=== PATIENT | male | born 1955 | race Caucasian/White ===

== ENCOUNTER 2022-04-01 08:27 | Inpatient (IN) | payer OTHER, BC ==
[2022-04-01 09:17] VITALS: BMI 34.2
[2022-04-01] MEDS ORDERED: BISMUTH SUBSALICYLATE 262 MG/15 ML BTL PO PRN (10:23)
[2022-04-01] MEDS ORDERED: IBUPROFEN 400 MG TABLET (FP) PO PRN (10:23)
[2022-04-01] MEDS ORDERED: ACETAMINOPHEN 325 MG TABLET (FP) PO PRN ×2 (10:23)
[2022-04-01] MEDS ORDERED: MAGNESIUM HYDROX 2400MG/30ML ORAL SUSPENSION 30 ML CUP PO PRN (10:23)
[2022-04-01] MEDS ORDERED: MAGNESIUM CITRATE 300 ML BOTTLE PO PRN (10:23)
[2022-04-01] MEDS ORDERED: DICYCLOMINE HCL 10 MG CAPSULE PO PRN (10:23)
[2022-04-01] MEDS ORDERED: IBUPROFEN 600 MG TABLET (FP) PO PRN (10:23)
[2022-04-01] MEDS ORDERED: MAG HYDROX/AL HYDROX/SIMETH 30 ML UNIT-DOSE CUP PO PRN (10:23)
[2022-04-01] MEDS ORDERED: ONDANSETRON *ODT* 4 MG TABLET SL PRN (10:23)
[2022-04-01] MEDS ORDERED: diazePAM 5 MG TABLET PO PRN (10:23)
[2022-04-01] MEDS ORDERED: METHOCARBAMOL 500 MG TABLET PO PRN (10:23)
[2022-04-01] MEDS ORDERED: BENZOCAINE/MENTHOL (CHLORASEPTIC ) LOZENGE MM PRN (10:23)
[2022-04-01] MEDS ORDERED: LOPERAMIDE HCL 2 MG CAPSULE PO PRN (10:23)
[2022-04-01] MEDS: diazePAM 5 MG TABLET PO SCH ×3 (11:38→22:22)
[2022-04-01] MEDS: PRENATAL VITAMINS W/ FOLIC ACID TABLET (FP) PO SCH (11:39)
[2022-04-01 15:48] LABS: HEMATOCRIT 42.2 % (35.4-49); HEMOGLOBIN 14.3 GM/dL (11.7-16.9); MCHC 33.9 g/dl (32.0-35.9); MEAN CELL VOLUME 94.3 fl (80-96); MEAN PLT VOLUME 8.9 fl (7.5-11.1); PLATELET COUNT 309 10^3/uL (134-434); RBC 4.47 M/mm3 (4.00-5.60); RDW 12.9 % (11.9-15.9); WHITE BLOOD COUNT 14.3 K/mm3 (4.0-10.0)
[2022-04-01 16:10] LABS: ALBUMIN 4.3 g/dl (3.4-5.0); BLOOD UREA NITROGEN 17.9 mg/dL (7-18); CALCIUM 9.6 mg/dL (8.5-10.1)
[2022-04-01 16:13] LABS: CREATININE 0.9 mg/dL (0.55-1.3)
[2022-04-01 16:15] LABS: BILIRUBIN,TOTAL 1.1 mg/dL (0.2-1); TOT PROT 7.6 g/dl (6.4-8.2)
[2022-04-01] MEDS: metFORMIN HCL 500 MG TABLET (FP) PO SCH (18:18)
[2022-04-01] MEDS: THIAMINE HCL 100 MG TABLET (FP) PO SCH (22:21)
[2022-04-01] MEDS: ATORVASTATIN CA 10 MG TABLET (FP) PO SCH (22:21)
[2022-04-01] MEDS: MELATONIN 5 MG TABLETS PO SCH (22:21)
[2022-04-01] MEDS: hydrOXYzine PAMOATE 25 MG CAPSULE (FP) PO PRN (22:23)
[2022-04-02] MEDS: diazePAM 5 MG TABLET PO SCH ×4 (05:27→22:31)
[2022-04-02] MEDS: metFORMIN HCL 500 MG TABLET (FP) PO SCH ×2 (06:27→17:58)
[2022-04-02] MEDS ORDERED: PATIENT'S OWN MEDICATION (NON-FORMULARY) (Losartan/Hydrochlorothiazide [Losartan-Hctz 100- PO SCH (10:00)
[2022-04-02] MEDS: HYDROCHLOROTHIAZIDE 12.5 MG CAPSULE (FP) PO SCH (10:38)
[2022-04-02] MEDS: PRENATAL VITAMINS W/ FOLIC ACID TABLET (FP) PO SCH (10:38)
[2022-04-02] MEDS: ALLOPURINOL 100 MG TABLET (FP) PO SCH (10:38)
[2022-04-02] MEDS: hydrOXYzine PAMOATE 25 MG CAPSULE (FP) PO PRN (10:38)
[2022-04-02] MEDS: LOSARTAN POTASSIUM 50 MG TABLET PO SCH (10:39)
[2022-04-02] MEDS: amLODIPine BESYLATE 5 MG TABLET (FP) PO SCH (10:39)
[2022-04-02] MEDS: FLUTICASONE PROP 0.05% 16 GM NASAL SPRAY NS SCH ×2 (10:40→22:34)
[2022-04-02] MEDS: THIAMINE HCL 100 MG TABLET (FP) PO SCH (22:31)
[2022-04-02] MEDS: ATORVASTATIN CA 10 MG TABLET (FP) PO SCH (22:31)
[2022-04-02] MEDS: MELATONIN 5 MG TABLETS PO SCH (22:32)
[2022-04-03] MEDS: diazePAM 5 MG TABLET PO SCH ×3 (05:27→22:13)
[2022-04-03] MEDS: metFORMIN HCL 500 MG TABLET (FP) PO SCH ×2 (08:20→17:40)
[2022-04-03 10:01] LABS: BASO % 0.7 % (0-2.0); EOS % 2.3 % (0-4.5); HEMATOCRIT 37.5 % (35.4-49); HEMOGLOBIN 12.8 GM/dL (11.7-16.9); LYMPH % 19.8 % (8-40); MCHC 34.2 g/dl (32.0-35.9); MEAN CELL VOLUME 96.4 fl (80-96); NEUT % 68.2 % (42.8-82.8); PLATELET COUNT 216 10^3/uL (134-434); RBC 3.89 M/mm3 (4.00-5.60); RDW 12.9 % (11.9-15.9)
[2022-04-03] MEDS: ALLOPURINOL 100 MG TABLET (FP) PO SCH (10:25)
[2022-04-03] MEDS: HYDROCHLOROTHIAZIDE 12.5 MG CAPSULE (FP) PO SCH (10:25)
[2022-04-03] MEDS: amLODIPine BESYLATE 5 MG TABLET (FP) PO SCH (10:25)
[2022-04-03] MEDS: LOSARTAN POTASSIUM 50 MG TABLET PO SCH (10:25)
[2022-04-03] MEDS: FLUTICASONE PROP 0.05% 16 GM NASAL SPRAY NS SCH ×2 (10:26→22:40)
[2022-04-03] MEDS: PRENATAL VITAMINS W/ FOLIC ACID TABLET (FP) PO SCH (10:26)
[2022-04-03] MEDS: THIAMINE HCL 100 MG TABLET (FP) PO SCH (22:13)
[2022-04-03] MEDS: ATORVASTATIN CA 10 MG TABLET (FP) PO SCH (22:13)
[2022-04-03] MEDS: MELATONIN 5 MG TABLETS PO SCH (22:14)
[2022-04-03] MEDS: hydrOXYzine PAMOATE 25 MG CAPSULE (FP) PO PRN (22:15)
[2022-04-04] MEDS: diazePAM 5 MG TABLET PO SCH ×2 (05:06→18:17)
[2022-04-04] MEDS: metFORMIN HCL 500 MG TABLET (FP) PO SCH ×2 (07:05→18:16)
[2022-04-04] MEDS: FLUTICASONE PROP 0.05% 16 GM NASAL SPRAY NS SCH ×2 (10:38→23:20)
[2022-04-04] MEDS: amLODIPine BESYLATE 5 MG TABLET (FP) PO SCH (10:39)
[2022-04-04] MEDS: ALLOPURINOL 100 MG TABLET (FP) PO SCH (10:39)
[2022-04-04] MEDS: HYDROCHLOROTHIAZIDE 12.5 MG CAPSULE (FP) PO SCH (10:39)
[2022-04-04] MEDS: PRENATAL VITAMINS W/ FOLIC ACID TABLET (FP) PO SCH (10:39)
[2022-04-04] MEDS: LOSARTAN POTASSIUM 50 MG TABLET PO SCH (12:26)
[2022-04-04] MEDS: ATORVASTATIN CA 10 MG TABLET (FP) PO SCH (22:04)
[2022-04-04] MEDS: THIAMINE HCL 100 MG TABLET (FP) PO SCH (22:04)
[2022-04-04] MEDS: MELATONIN 5 MG TABLETS PO SCH (22:04)
[2022-04-04] MEDS: hydrOXYzine PAMOATE 25 MG CAPSULE (FP) PO PRN (22:04)
[2022-04-04 23:25] VITALS: RESP 18
[2022-04-05] MEDS ORDERED: diazePAM 5 MG TABLET PO ONE (06:00)
[2022-04-05] MEDS: metFORMIN HCL 500 MG TABLET (FP) PO SCH (06:52)
[2022-04-05 09:40] VITALS: BP 160/87; PULSE 82; TEMP 97.1
[2022-04-05] MEDS: ALLOPURINOL 100 MG TABLET (FP) PO SCH (09:43)
[2022-04-05] MEDS: PRENATAL VITAMINS W/ FOLIC ACID TABLET (FP) PO SCH (09:43)
[2022-04-05] MEDS: HYDROCHLOROTHIAZIDE 12.5 MG CAPSULE (FP) PO SCH (09:43)
[2022-04-05] MEDS: FLUTICASONE PROP 0.05% 16 GM NASAL SPRAY NS SCH (09:43)
[2022-04-05] MEDS: amLODIPine BESYLATE 5 MG TABLET (FP) PO SCH (09:43)
== END 2022-04-05 11:09 | disposition home or self-care (01) | DRG 897 ==
LOC: YASAS 08:27 → Y6N 11:19
PROVIDERS: ADMIT Allergy & Immunology; ATTEND Surgery
PROC: HZ2ZZZZ Detoxification Services for Substance Abuse Treatment (ICD-10-PCS; principal; 2022-04-01)
DX: F10.230 Alcohol dependence with withdrawal, uncomplicated (principal); E78.1 Pure hyperglyceridemia; I10 Essential (primary) hypertension; E11.9 Type 2 diabetes mellitus without complications; Z79.4 Long term (current) use of insulin; M1A.9XX0 Chronic gout, unspecified, without tophus (tophi); Z96.652 Presence of left artificial knee joint
CPT/HCPCS: 36415; 80053; 82962; 85025; 85027; 86780; 93005; 93010; C9803-CS; U0003; U0005